=== PATIENT | male | born 1930 | race Caucasian/White ===

== ENCOUNTER 2016-06-02 22:39 | Emergency (ER) | payer MEDICARE, BC ==
[2016-06-02 22:48] VITALS: RESP 24
[2016-06-02 23:11] LABS: BASOPHILS % (AUTO) 1 % (0-3); EOSINOPHILS % (AUTO) 2 % (0-9); HEMATOCRIT 31 % (39-53); MEAN CORPUSCULAR HGB CONC 34.3 gm/dl (32.0-36.0); MEAN CORPUSCULAR VOLUME 98 fL (80-100); MONOCYTES % (AUTO) 11.6 % (0-12); NEUTROPHILS % (AUTO) 70.5 % (37-80)
[2016-06-03] VITALS: BP 125/50; PULSE 68; TEMP 99.2; O2SAT 92
== END 2016-06-02 23:50 | disposition home or self-care (01) | DRG 203 ==
LOC: ED 22:39
DX: J20.9 Acute bronchitis, unspecified (principal)
CPT/HCPCS: 36415; 85025; 99282

== ENCOUNTER 2017-10-05 14:37 | Outpatient (CLI) | payer MEDICARE, BC ==
[2016-06-03] VITALS: O2SAT 92
== END 2017-10-05 14:38 | disposition home or self-care (01) | DRG 556 ==
LOC: CONVCARE 14:37
PROVIDERS: ATTEND Orthopaedic Surgery
DX: M25.551 Pain in right hip (principal); M54.9 Dorsalgia, unspecified
CPT/HCPCS: 72120; 72131; 73521

== ENCOUNTER 2017-10-17 09:01 | Day surgery (SDC) | payer MEDICARE, BC ==
[2017-10-17] MEDS ORDERED: BUPIVACAINE HCL 0.5% MPF 10 ML SOL ONE (10:23)
[2017-10-17] MEDS ORDERED: DEXAMETHASONE SOD PHOS PF 10 MG/ML SOL IJ ONE (10:23)
[2017-10-17 10:50] VITALS: BP 159/92; PULSE 55; RESP 18; TEMP 96.5; O2SAT 95
== END 2017-10-17 11:19 | disposition home or self-care (01) | DRG 552 ==
LOC: SURG 09:01
PROVIDERS: ATTEND Nurse Anesthetist, Certified Registered
DX: M48.061 Spinal stenosis, lumbar region without neurogenic claudication (principal)
CPT/HCPCS: J1100

== ENCOUNTER 2018-01-17 12:16 | Day surgery (SDC) | payer MEDICARE, BC ==
[2018-01-17] MEDS ORDERED: BUPIVACAINE HCL 0.25% MPF 30 ML SOL INFIL ONE (13:58)
[2018-01-17] MEDS: DEXAMETHASONE SOD PHOS PF 10 MG/ML SOL IJ ONE ×2 (14:07→14:13)
[2018-01-17 14:29] VITALS: RESP 18; TEMP 97.4; O2SAT 95
[2018-01-17 14:33] VITALS: BP 179/73; PULSE 59
== END 2018-01-17 15:05 | disposition home or self-care (01) | DRG 552 ==
LOC: SURG 12:16
PROVIDERS: ATTEND Nurse Anesthetist, Certified Registered
DX: M99.53 Intervertebral disc stenosis of neural canal of lumbar region (principal)
CPT/HCPCS: J1100

== ENCOUNTER 2018-05-02 12:45 | Day surgery (SDC) | payer MEDICARE, BC ==
[2018-05-02] MEDS ORDERED: DEXAMETHASONE SOD PHOS PF 10 MG/ML SOL IJ ONE (13:57)
[2018-05-02 14:15] VITALS: PULSE 59; RESP 12; TEMP 97.7; O2SAT 97
[2018-05-02 14:44] VITALS: BP 171/91
== END 2018-05-02 14:44 | disposition home or self-care (01) | DRG 552 ==
LOC: SURG 12:45
PROVIDERS: ATTEND Nurse Anesthetist, Certified Registered
DX: M48.062 Spinal stenosis, lumbar region with neurogenic claudication (principal)
CPT/HCPCS: J1100

== ENCOUNTER 2018-06-19 12:47 | Day surgery (SDC) | payer MEDICARE, BC ==
[2018-06-19 13:32] VITALS: TEMP 97.8
[2018-06-19] MEDS ORDERED: BUPIVACAINE HCL 0.25% MPF 30 ML SOL INFIL ONE (13:47)
[2018-06-19] MEDS ORDERED: TRIAMCINOLONE ACETONIDE 40 MG/ML SUS ONE (13:47)
[2018-06-19 14:05] VITALS: BP 174/80; PULSE 57; RESP 18; O2SAT 98
== END 2018-06-19 14:45 | disposition home or self-care (01) | DRG 554 ==
LOC: SURG 12:47
PROVIDERS: ATTEND Nurse Anesthetist, Certified Registered
DX: M16.11 Unilateral primary osteoarthritis, right hip (principal)
CPT/HCPCS: J3300

== ENCOUNTER 2018-08-08 12:53 | Day surgery (SDC) | payer MEDICARE, BC ==
[2018-08-08] MEDS ORDERED: BUPIVACAINE HCL 0.25% MPF 30 ML SOL INFIL ONE (13:35)
[2018-08-08] MEDS: DEXAMETHASONE SOD PHOS PF 10 MG/ML SOL IJ ONE ×3 (14:10→14:18)
[2018-08-08 14:19] VITALS: PULSE 60; RESP 18
[2018-08-08 14:33] VITALS: BP 169/74; TEMP 97.4; O2SAT 96
== END 2018-08-08 14:57 | disposition home or self-care (01) | DRG 552 ==
LOC: SURG 12:53
PROVIDERS: ATTEND Nurse Anesthetist, Certified Registered
DX: M48.062 Spinal stenosis, lumbar region with neurogenic claudication (principal)
CPT/HCPCS: J1100